=== PATIENT | male | born 1995 | race Caucasian/White ===

== ENCOUNTER 2019-02-16 20:13 | Emergency (ER) | payer OTHER, BC ==
[~2019-02-16 20:13] MED LIST: NO RTN MEDS
[2019-02-16 20:24] VITALS: BP 120/94
[2019-02-16] MEDS ORDERED: CEPH500T7 PO (21:32)
--- NOTE | 2019-02-16 21:33 | ER Report ---
History and Physical Time Seen By MD: 20:36 Hx. of Stated Complaint: CUTTING COOKED MEAT AT WORK AND CUT HIS LEFT THUMB HPI/ROS CHIEF COMPLAINT: Laceration to left thumb HISTORY OF PRESENT ILLNESS: 23 year old male presents with laceration to left thumb. Patient cut his left thumb at work while cutting cooked meat. The laceration is located on palmar side of distal end of thumb that extends into his nail. Laceration is approximately 2cm in length. No crush injury. Patient able to move thumb against resistance in adduction and abduction. Patient denies crush injury, nausea, vomiting. Allergies: Coded Allergies: bacitracin (Verified Allergy, Intermediate, 02/16/19) RASH neomycin (Verified Allergy, Intermediate, 02/16/19) RASH polymyxin B (Verified Allergy, Intermediate, 02/16/19) RASH Home Meds Active Scripts Cephalexin 500 Mg Tab (KEFLEX 500 MG TAB) 500 Mg Tablet, 500 MG PO Q6H, #20 TAB Prov:PAULA VILLEAD [employer] 02/16/19 Past Medical/Surgical History Patient has a past medical history of left wrist fracture, staph infection. Patient has no pertinent surgical history. Reviewed Nurses Notes: Yes Hx Substance Use Disorder: No Hx Alcohol Use: No Constitutional Vital Sign - Last 24 Hours 02/16/19 20:24 Temp 97.5 Pulse 81 Resp 12 B/P (MAP) 120/94 Pulse Ox 93 O2 Delivery Room Air Physical Exam General appearance: Alert no distress. Respiratory: Chest is non tender, lungs are clear to auscultation. Cardiac: Regular rate and rhythm DIFFERENTIAL DIAGNOSIS: After history and physical exam differential diagnosis was considered for laceration to left thumb. Medical Decision Making ED Course/Re-evaluation ED Course Patient was admitted to an exam room, history and physical were obtained. Rectal diagnoses were considered. On examination patient has 2 similar laceration to the tip of the left thumb. The wound was anesthetized, clean and appears described below. Patient tolerated procedure well. We will go ahead and discharge him home at this time. We will go ahead and put him on antibiotics for next 5 days to prevent infection. Patient is to return to emergency room with any signs of infection. He is to have the sutures removed in 7-10 days. Patient verbalized understanding and agreement with plan. Procedure: Laceration repair. Verbal consent was obtained from the patient. The 2cm laceration on the left thumb was anesthetized in the usual fashion. The wound was scrubbed, draped and explored to its base with a gloved finger. There were no deep structures involved. No tendon injury was identified. The wound was repaired with 6 simple interrupted sutures using 4-0 prolene material. The wound repair was simple. The procedure was performed by myself and Adilene Taylor [employer] student. Decision to Disposition Date: February 16, 2019 Decision to Disposition Time: 21:32 Depart Departure Latest Vital Signs Vital Signs Date Time Temp Pulse Resp B/P (MAP) Pulse Ox O2 Delivery O2 Flow Rate FiO2 02/16/19 20:24 97.5 81 12 120/94 93 Room Air Impression: Primary Impression: Finger laceration Condition: Improved Disposition: HOME OR SELF-CARE New Scripts Cephalexin 500 Mg Tab (KEFLEX 500 MG TAB) 500 Mg Tablet 500 MG PO Q6H, #20 TAB Prov: PAULA VILLEDA 02/16/19 Patient Instructions: Finger Laceration (ED) Additional Instructions: Keep wound dry for 48 hours. Follow up with your primary care provider in the next 7-10 days to have sutures removed. Monitor for signs of infection; redness, swelling, heat, discharge, increasing pain or red streaking. Take Tylenol or Ibuprofen as needed for pain. Return to the ER with any concerns. You may change dressing as needed. Problem Qualifiers Primary Impression: Finger laceration Encounter type: initial encounter Finger: thumb Damage to nail status: with damage Foreign body presence: without foreign body Laterality: left Qualified Codes: S61.112A - Laceration without foreign body of left thumb with damage to nail, initial encounter PAULA VILLEDA February 16, 2019 21:33
[2019-02-16] MEDS ORDERED: CEPHALEXIN 500 MG CAP TH 2 CAP/BOTTLE PO ONE (21:35)
[2019-02-16] MEDS ORDERED: DIPHTH/TETANUS/ACEL. PERTUSSIS IM ONLY ONE (21:38)
== END 2019-02-16 21:36 | disposition home or self-care (01) ==
LOC: ER 21:06
DX: S61.012A Laceration without foreign body of left thumb without damage to nail, initial encounter (principal)
CPT/HCPCS: 90471; 90715; 99283